=== PATIENT | male | born 2000 | race Caucasian/White ===

== ENCOUNTER 2021-12-08 10:19 | Emergency (ER) | payer OTHER ==
[~2021-12-08] VITALS: Ht 180.3 cm; Wt 81.8 kg
[2021-12-08] MEDS ORDERED: ADVI200C8 PO (10:26)
[2021-12-08] MEDS ORDERED: METOCLOPRAMIDE 10 MG TAB PO ONE (11:55)
[2021-12-08] MEDS ORDERED: ACETAMINOPHEN 500 MG TAB PO ONE (11:55)
[2021-12-08 12:51] VITALS: BP 130/59
== END 2021-12-08 12:52 | disposition home or self-care (01) ==
LOC: M ED 10:19
DX: S06.0X0A Concussion without loss of consciousness, initial encounter (principal); V00.311A Fall from snowboard, initial encounter; Y92.838 Other recreation area as the place of occurrence of the external cause